=== PATIENT | male | born 1995 | race Caucasian/White ===

== ENCOUNTER → 2017-12-08 | Outpatient (CLI) | payer MEDICAID ==
[~2017-12-08] MED LIST: ESCI10TA8 PO; FLUT10SP; FLUT16SP19 NS; MODA100T5 PO; OLOP30.5; ONDA4TAB9 PO; PANT40TA65 PO
--- NOTE | 2017-12-08 15:35 | RADIOLOGY IMAGING REPORT ---
FACILITY: [facility] - [place] PATIENT NAME: Jaylen Dumont : 1995 MR: [id number] V: [id number] EXAM DATE: ORDERING PHYSICIAN: GAGE RAMSEY TECHNOLOGIST[place] [facility] [place]len Dum[place] : 1995 Visit/Account:[id number] Date of Sevice: 12/08/2017 EXAMINATION: Lumbar spine radiographs 3 views HISTORY: Increasing lower back pain. Spina bifida. COMPARISON: None. FINDINGS: AP and lateral views of the lumbar spine and a lateral view of the lumbosacral junction are obtained. Bones: There are 5 nonrib-bearing lumbar type vertebral bodies. Slight anterior wedging of L1. Rem aining vertebral body heights are maintained. Disc spaces: Negative. Posterior elements: The left L5 lamina is hypoplastic. There is incomplete closure of the L5 posteri or elements. Alignment: Normal. Hardware: None. Soft tissues: Negative. IMPRESSION: 1. Mild anterior wedging of L1 is likely developmental. 2. 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 Report Dictated By: Liz Larsen MD at 12/08/2017 3:21 PM Report E-Signed By: Liz Larsen MD at 12/08/2017 3:30 PM WSN:[email or web address]
== END ==
LOC: RAD 14:48
PROVIDERS: ATTEND Physician Assistant Medical
DX: S32.010A Wedge compression fracture of first lumbar vertebra, initial encounter for closed fracture (principal); Q05.7 Lumbar spina bifida without hydrocephalus
CPT/HCPCS: 72100